=== PATIENT | male | born 1995 | race Hispanic/Latino ===

== ENCOUNTER 2024-03-03 21:50 | Emergency (ER) | payer BC, SELFPAY ==
--- OUTSIDE RECORDS SUMMARY | 2024-03-03 21:52 | XMS REPORT | Continuity of Care Document ---
Author Name Unknown Address [address] [facility] [address] [place] [address] [facility] thconnect Address [address] 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 Name Role Phone Pcp, Patient Does Not Have A Primary Care Physic gifty Galina Venegas PA-C Attending Clinician Unknown, Attending Attending Clinician Unavailab GALINA Hamm Attending Clinician Unavailable JOVITA JOE Attending Clinician Unavailable Jovita Joe MD Attending Clinician [phone] Unknown, Attending Attending Clinician Unavailab le Payers Payer Name Policy Type Policy Number Effective Date Expirati on Date [facility] [id number] 2016 00:00:00 Allergies, Adverse Reactions, Alerts Allergy Name Allergy Type Status Severity Reaction(s) Onset Date Inactive Date Treating Clinician Comments Source NO KNOWN ALLERGIE S [facility] Social [facility] Social Habit Start Date Stop Date Quantity Comments Source [facility] of tobacco use Snuff User [facility] Alcoholic beverage intake 2023-12-28 00:00:00 2023-12-28 00:00:00 Current drinker of alcohol (finding) [facility] History of Social function 2023-12-28 00:00:00 2023-12-28 00:00:00 [facility] Tobacco use and exposure 2023-09-25 00:00:00 2023-09-25 00:00:00 User of smokeless tobacco [facility] Sex assigned at 1995 00:00:00 1995 00:00:00 [facility] Smoking Status Start Date Stop Date Source Smokes tobacco daily 2023-09-25 00:00:00 [facility] Medications Ordered Medication Name Filled Medication Name Start Date Stop Date Current Medication? Ordering Clinician Indication Dosage Frequency Signature (SIG) Comments Components Source ofloxacin 0.3 % otic drops 2023-03 00:00: 00 Yes [id number] 5[drp] Place 5 Drops in right ear in the morning and 5 Drops in the evening. [facility] azelastine 137 mcg (0.1 %) nasal spray 09-24 00:00: 00 Yes [id number] 1{spray } Use 1 [place] in each nostril in the morning and 1 [place] in the evening. Use in each nostril as directed [facility] fluticasone propionate 50 mcg/actuati on nasal spray 09-24 00:00: 00 Yes [id number] 1{spray } Use 1 [place] in each nostril in the morning. [facility] methylPREDN ISolone (MEDROL, RUTHIE,) 4 mg tablets 09-24 00:00: 00 Yes [id number] Take by mouth SEE-INSTRU CTIONS. follow package directions [facility] amoxicillin -clavulanat e (AUGMENTIN) 875-125 mg per tablet 09-24 00:00: 00 10-02 04:59 :00 No [id number] 1{tbl} Take 1 tablet by mouth in the morning and 1 tablet in the evening. Do all this for 7 days. [facility] naproxen sodium (ALEVE) 220 mg tablet 08-21 16:04: 46 Yes 220mg Take 220 mg by mouth as needed. [facility] Vital Signs Vital Name Observation Time Observation Value Comments Sonya mason Systolic blood pressure 2023-12-28 19:51:00 143 mm[Hg] [facility] Diastolic blood pressure 2023-12-28 19:51:00 92 mm[Hg] [facility] Heart rate 2023-12-28 19:50:00 67 /min Unive [facility] Body temperature 2023-12-28 19:50:00 36.83 Amelia [facility] Respiratory rate 2023-12-28 19:50:00 16 /min [facility] Body height 2023-12-28 19:50:00 167.6 cm Univ [facility] Body weight 2023-12-28 19:50:00 122.108 kg [facility] BMI 2023-12-28 19:50:00 43.45 kg/m2 [facility] Oxygen saturation in Arterial blood by Pulse oximetry 2023-12-28 19:50:00 98 /min [facility] Systolic blood pressure 2023-09-25 20:42:00 132 mm[Hg] [facility] Diastolic blood pressure 2023-09-25 20:42:00 88 mm[Hg] [facility] Heart rate 2023-09-25 20:42:00 103 /min Unive [facility] Body temperature 2023-09-25 20:42:00 37.11 Amelia [facility] Respiratory rate 2023-09-25 20:42:00 17 /min [facility] Body weight 2023-09-25 20:42:00 121.564 kg [facility] BMI 2023-09-25 20:42:00 43.26 kg/m2 [facility] Oxygen saturation in Arterial blood by Pulse oximetry 2023-09-25 20:42:00 96 /min [facility] Procedures Procedure Date / Time Performed Performing Clinicia n Source POCT SARS-COV-2 ANTIGEN (BINAX NOW) 2023-09-25 20:37:00 Ildefonso Lawler [facility] Encounters Start Date/Time End Date/Time Encounter Type Admission Type Attending Clinicians Care Facility Care Department Encounter ID Source 2023-12-28 15:00:00 2023-12-28 15:00:00 Urgent Care Galina Venegas Unknown, Attending [facility] [id number] [facility] 2023-12-28 15:00:00 2023-12-28 14:57:29 Outpatient GALINA FINK [facility] [id number] [facility] 2023-09-25 15:20:00 2023-09-25 16:01:44 Outpatient JOVITA CANTU [facility] [id number] [facility] 2023-09-25 15:20:00 2023-09-25 16:01:44 Urgent Care Jovita Joe Unknown, Attending [facility] [id number] [facility] Results Test Description Test Time Test Comments Results Result Co mments Source [facility]
[2024-03-03] MEDS ORDERED: KETOROLAC 30 MG/ML INJ ONE (22:44)
[2024-03-03] MEDS ORDERED: HYDROCODONE/APAP 5/325 MG TAB ONE (22:45)
--- NOTE | 2024-03-03 23:32 | ER ---
Nurse's Notes [facility] Name: Shivam Nicole Age: 28 yrs Sex: Male : 1995 Arrival Date: 03/03/2024 Time: 21:50 Bed DX4 Private MD: Diagnosis: Dental caries, unspecified Presentation: 03/03 22:23 Chief complaint: Patient states: pain to right upper wisdom tooth for a couple of days. vc1 Coronavirus screen: Client denies travel out of the [place] in the last 14 days. At this time, the client does not indicate any symptoms associated with coronavirus-19. Ebola Screen: Patient negative for fever greater than or equal to 101.5 degrees Fahrenheit, and additional compatible Ebola Virus Disease symptoms Patient denies exposure to infectious person. Patient denies travel to an Ebola-affected area in the 21 days before illness onset. No symptoms or risks identified at this time. Initial Sepsis Screen: Does the patient meet any 2 criteria? No. Patient's initial sepsis screen is negative. Does the patient have a suspected source of infection? No. Patient's initial sepsis screen is negative. Risk Assessment: Do you want to hurt yourself or someone else? Patient reports no desire to harm self or others. Onset of symptoms was March 01, 2024. Care prior to arrival: Medication(s) given: Motrin, 600 mg. 22:23 Method Of Arrival: Ambulatory vc1 22:23 Acuity: LORENZA 3 vc1 Triage Assessment: 23:54 General: Appears in no apparent distress. comfortable, Behavior is calm, cooperative, vc1 appropriate for age. Pain: Complains of pain in upper right third molar Pain radiates to upper right third molar Pain currently is 9 out of 10 on a pain scale. EENT: Reports pain in upper right third molar. Neuro: Level of Consciousness is awake, alert, obeys commands, Oriented to person, place, time, situation, Appropriate for age. Cardiovascular: Capillary refill < 3 seconds Patient's skin is warm and dry. Respiratory: Airway is patent Respiratory effort is even, unlabored, Respiratory pattern is regular, symmetrical, Breath sounds are clear bilaterally. GI: No deficits noted. No signs and/or symptoms were reported involving the gastrointestinal system. : No deficits noted. No signs and/or symptoms were reported regarding the genitourinary system. Derm: Skin is intact, is healthy with good turgor, Skin is dry, Skin is normal, Skin temperature is warm. Musculoskeletal: Circulation, motion, and sensation intact. Range of motion: intact in all extremities. Historical: - Allergies: 22:25 NKDA; vc1 - Home Meds: 22:25 None [Active]; vc1 - PMHx: 22:25 None; vc1 - PSHx: 22:25 None; vc1 - Immunization history:: Client reports having NOT received the Covid vaccine. Flu vaccine is not up to date. - Infectious Disease History:: Denies. - Social history:: Smoking status: Patient denies any tobacco usage or history of. - Family history:: not pertinent. - Hospitalizations: : No recent hospitalization is reported. Screenin:25 Abuse screen: Denies threats or abuse. Nutritional screening: No deficits noted. vc1 Tuberculosis screening: No symptoms or risk factors identified. 23:53 [facility] ED Fall Risk Assessment (Adult) History of falling in the last 3 months, vc1 including since admission No falls in past 3 months (0 pts) Confusion or Disorientation No (0 pts) Intoxicated or Sedated No (0 pts) Impaired Gait No (0 pts) Mobility Assist Device Used No (0 pt) Altered Elimination No (0 pt) Score/Fall Risk Level 0 - 2 = Low Risk Oriented to surroundings, Maintained a safe environment, Educated pt \T\ family on fall prevention, incl call for assistance when getting out of bed. Vital Signs: 22:23 BP 132 / 77; Pulse 73; Resp 19; Temp 96.9; Pulse Ox 98% ; Weight 124.74 kg; Height 5 vc1 ft. 6 in. ; Pain 8/10; 22:23 Body Mass Index 44.39 (124.74 kg, 167.64 cm) vc1 22:23 Pain Scale: Adult vc1 ED Course: 21:52 Patient arrived in ED. im 21:55 Nikhil Martin MD is Attending Physician. rn 22:23 Elisa Hua, ROBERTA is Primary Nurse. vc1 22:25 Triage completed. vc1 22:25 Arm band placed on right wrist. vc1 23:53 seen in diagnostic chair. Provided Education on: complete abx. vc1 23:56 No provider procedures requiring assistance completed. Patient did not have IV access vc1 during this emergency room visit. Administered Medications: 22:48 Drug: Ketorolac IM 30 mg IM once Route: IM; Site: left deltoid; vc1 22:48 Drug: HYDROcodone-acetaminophen PO 5 mg-325 mg 1 tabs PO once Route: PO; vc1 22:48 Drug: Clindamycin PO 300 mg PO once Route: PO; vc1 Medication: 23:54 VIS not applicable for this client. vc1 Outcome: 23:32 Discharge ordered by . rn 23:56 Discharged to home ambulatory, vc1 23:56 Condition: good 23:56 Discharge instructions given to patient, Instructed on discharge instructions, follow up and referral plans. medication usage, Demonstrated understanding of instructions, follow-up care, medications, Prescriptions given X 2, 23:56 Patient left the ED. vc1 Signatures: Nikhil Martin MD MD rn Calcote, Vanessa, RN RN vc1 Jerrica Jones im
--- NOTE | 2024-03-03 23:32 | EDPHYS ---
Physician Documentation [facility] Name: Shivam Nicole Age: 28 yrs Sex: Male : 1995 Arrival Date: 03/03/2024 Time: 21:50 Bed DX4 Private MD: ED Physician Nikhil Martin HPI: 03/03 22:28 This 28 yrs old Male presents to ER via Ambulatory with complaints of rn Toothache. 22:28 The patient presents with pain. Onset: The symptoms/episode began/occurred at an rn unknown time. Modifying factors: The symptoms are alleviated by nothing, the symptoms are aggravated by nothing. Severity of symptoms: At their worst the symptoms were moderate, in the emergency department the symptoms are unchanged. The patient has experienced similar episodes in the past. Patient reports has been dealing with right upper molar pain for some time, worse over the last week, no swelling. No fever. No trauma.. Historical: - Allergies: 22:25 NKDA; vc1 - Home Meds: 22:25 None [Active]; vc1 - PMHx: 22:25 None; vc1 - PSHx: 22:25 None; vc1 - Immunization history:: Client reports having NOT received the Covid vaccine. Flu vaccine is not up to date. - Infectious Disease History:: Denies. - Social history:: Smoking status: Patient denies any tobacco usage or history of. - Family history:: not pertinent. - Hospitalizations: : No recent hospitalization is reported. ROS: 22:28 Constitutional: Negative for fever, chills, and weight loss, ENT: Positive for dental rn pain Exam: 22:28 Constitutional: This is a well developed, well nourished patient who is awake, alert, rn and in no acute distress. ENT: Dental carry present right upper molar along gumline. No evidence of dental abscess or gingival swelling. Vital Signs: 22:23 BP 132 / 77; Pulse 73; Resp 19; Temp 96.9; Pulse Ox 98% ; Weight 124.74 kg; Height 5 vc1 ft. 6 in. ; Pain 8/10; 22:23 Body Mass Index 44.39 (124.74 kg, 167.64 cm) vc1 22:23 Pain Scale: Adult vc1 MDM: 21:55 Medical Screening Exam initiated rn 23:31 Differential diagnosis: dental caries, dental abscess. Data reviewed: vital signs, rn nurses notes, and as a result, I will discharge patient. Counseling: I had a detailed discussion with the patient and/or guardian regarding the historical points, exam findings, and any diagnostic results supporting the discharge/admit diagnosis, the need for outpatient follow up, to return to the emergency department if symptoms worsen or persist or if there are any questions or concerns that arise at home. Response to treatment: the patient's symptoms have mildly improved after treatment, and as a result, I will discharge patient. Special discussion: I discussed with the patient/guardian in detail that at this point there is no indication for admission to the hospital. It is understood, however, that if the symptoms persist or worsen the patient needs to return immediately for re-evaluation. Administered Medications: 22:48 Drug: Ketorolac IM 30 mg IM once Route: IM; Site: left deltoid; vc1 22:48 Drug: HYDROcodone-acetaminophen PO 5 mg-325 mg 1 tabs PO once Route: PO; vc1 22:48 Drug: Clindamycin PO 300 mg PO once Route: PO; vc1 Disposition Summary: 03/03/24 23:32 Discharge Ordered Notes: Location: Home rn Problem: new rn Symptoms: have improved rn Condition: Stable rn Diagnosis - Dental caries, unspecified rn Followup: rn - With: Private Physician - When: As needed - Reason: Recheck today's complaints, Re-evaluation by your physician Discharge Instructions: - Discharge Summary Sheet rn - Dental Caries, Adult rn - Dental Pain rn Forms: - Medication Reconciliation Form rn - Antibiotic journalism intern - Prescription Opioid Use rn - Patient Portal Instructions rn - Leadership Thank You Letter rn Prescriptions: - Clindamycin HCl 300 mg Oral Capsule - take 1 capsule ORAL route every 6 hours for 10 days; 40 capsule; Refills: 0, rn Product Selection Permitted - Tramadol 50 mg Oral Tablet - take 1 tablet ORAL route every 8 hours as needed; 12 tablet; Refills: 0, rn Product Selection Permitted Signatures: Nikhil Martin MD MD rn Calcote, Vanessa, RN RN vc1
[2024-03-04 00:23] VITALS: BP 132/77; TEMP 96.9; O2SAT 98
== END 2024-03-03 23:56 | disposition home or self-care (01) ==
LOC: ER 21:50
DX: K02.9 Dental caries, unspecified (principal)
CPT/HCPCS: 96372; 99284